=== PATIENT | male | born 1985 | race Caucasian/White ===

== ENCOUNTER 2024-12-07 06:49 | Inpatient (IN) | payer BC, SELFPAY ==
[2024-12-07] VITALS (11 sets, daily range): BP systolic 112–144; BP diastolic 67–84; BMI 25.3; BMI 24.2
[2024-12-07 02:00] LABS: % Basophils 0.3 % (0-2); % Eosinophils 0.9 % (0-6); % Immature Granulocytes 0.3 % (0-0.5); % Lymphocytes 15.7 % (20.5-51.1); % Monocytes 8.2 % (1.7-9.3); % Neutrophils 74.6 % (42.2-75.2); Absolute Eosinophils 0.1 10^3/uL (0-0.7); Absolute Lymphocytes 1.8 10^3/uL (1.2-3.4); Absolute Monocytes 0.9 10^3/uL (0.1-0.6); Absolute Neutrophils 8.4 10^3/uL (1.4-6.5); Hematocrit 44.3 % (39.0-52.0); Hemoglobin 15.4 g/dL (13.0-18.0); Mean Corp Hgb Conc. 34.8 g/dL (33.0-37.0); Mean Corpuscular Volume 86.4 fL (80.0-94.0); Mean Platelet Volume 9.5 fL (7.4-10.4); Nucleated Red Blood Cells % 0 % (-); Platelet Count 225 10^3/uL (130-400); Red Blood Cell Count 5.13 10^6/uL (4.70-6.10); White Blood Cell Count 11.3 10^3/uL (4.8-10.8)
[2024-12-07 02:20] LABS: ALT (SGPT) 27 U/L (0-50); AST (SGOT) 25 U/L (17-59); Albumin 4.3 g/dl (3.5-5.0); Alkaline Phosphatase 51 U/L (38-126); Blood Urea Nitrogen 16 mg/dl (9-20); Calcium 9.6 mg/dl (8.4-10.2); Carbon Dioxide 31 mmol/L (22-30); Chloride 103 mmol/L (98-107); Glucose 104 mg/dl (70-99); Lipase 1069 U/L (23-300); Potassium 4.2 mmol/L (3.5-5.1); Sodium 140 mmol/L (135-145); Total Bilirubin 0.7 mg/dl (0.2-1.3); Total Protein 6.8 g/dl (6.3-8.2); eGFR > 60.00
--- NOTE | 2024-12-07 04:04 | ED.GENMED ---
History of Present Illness
General
Chief Complaint: Abdominal Pain
Source: patient
Exam Limitations: none
Time Seen by Provider: 12/07/24 03:54
Nursing documentation reviewed up to this point in time: agreed with
History of Present Illness
History of Present Illness:
This is a 39-year-old gentleman with no significant past medical history presents with 2-day history of upper abdominal pain, constant and progressive over the past 2 days. Initially began 3 days ago with mild abdominal discomfort, mild queasiness
but then developed upper abdominal discomfort on Sunday, 2 days ago that was initially briefly temporized with Pepto-Bismol. Pain has progressively worsened, now no relief with Pepto-Bismol, no change in pain with meals but admits to moderate
nausea without vomiting and decreased appetite. He denies back pain or chest pain. No fever no chills. No diarrhea or constipation. No history of similar episodes of pain.
He denies NSAID use, denies significant alcohol use perhaps 1 drink per week.
He takes no medicines on a daily basis.
Past History
Past History
ED Past Medical History: None
ED Past Surgical History: None
Social History
Tobacco: Non-smoker
Alcohol: Occasional
Drug: None
Personal:
Living: with family
Employment: Employed
Family History
Family History: Other (Noncontributory)
Phy Exam
Physical Exam
Physical Exam:
GENERAL: 39-year-old gentleman appears his stated age, awake and alert, appears mildly uncomfortable. Easily communicative.
EYE: anicteric
NECK: Supple, nontender, no meningismus, no significant adenopathy.
ENT: oral mucosa is moist. No rhinorrhea.
CARDIAC: Regular rate and rhythm. no murmur.
LUNGS: Clear breath sounds bilaterally, no acute respiratory distress, no wheezes/rales/rhonchi
ABDOMEN: Mildly distended, mildly firm with moderate tenderness generalized to the upper abdomen, significant TTP LUQ and mild tend left mid abdomen with mild local guarding LUQ, no rebound tenderness. no cvat. normoactive BS.
NEUROLOGICAL: Alert and oriented x3, no focal neuro deficits. Gait is steady.
SKIN: Warm and dry, normal color, skin intact. No rash.
MUSCULOSKELETAL: No C/C/E. peripheral pulses are full and equal b/l. No palpable tenderness.
PSYCH: Normal and appropriate interaction.
Course
Orders/Labs/Results
Orders:
Orders
12/07/24 01:30
Electrocardiogram (*1) Urgent
Reason for Study: Abdominal Pain
EKG- Treatment ONCE
12/07/24 01:41
Complete Blood Count/With Diff Urgent
Comprehensive Metabolic Panel Urgent
Lipase Urgent
12/07/24 04:02
CT Abd/pelvis W Iv Cont Urgent
Comment:
Reason For Exam: gen upper abd pain x 2 d, elevated lipase
12/07/24 04:03
0.9% Sodium Chloride 1000 ml [Nss] 1,000 ml IV BOLUS
HYDROmorphone [Dilaudid] 0.5 mg IV NOW STA
Ondansetron Injectable [Zofran] 4 mg IV NOW STA
Pantoprazole [Protonix IV] 40 mg IV NOW STA
Abnormal Lab Results
12/07/24
01:41
WBC 11.3 H 10^3/uL
(4.8-10.8)
Absolute Neuts (auto) 8.4 H 10^3/uL
(1.4-6.5)
Absolute Monos (auto) 0.9 H 10^3/uL
(0.1-0.6)
Lymphocytes % 15.7 L %
(20.5-51.1)
Carbon Dioxide 31 H mmol/L
(22-30)
Glucose 104 H mg/dl
(70-99)
Lipase 1069 H* U/L
(23-300)
12/07/24 01:41
12/07/24 01:41
Vital Signs
Initial and Last Documented VS:
Initial Vital Signs
Temp Pulse Resp BP Pulse Ox
99 F 98 20 144/84 98
12/07/24 01:27 12/07/24 01:27 12/07/24 01:27 12/07/24 01:27 12/07/24 01:27
Last Documented Vital Signs
Temp Pulse Resp BP Pulse Ox
99 F 98 20 121/83 98
12/07/24 01:27 12/07/24 01:27 12/07/24 01:27 12/07/24 05:19 12/07/24 05:19
MDM/Problems Addressed
Differential Diagnosis Includes:
Generalized abdominal pain, progressive over the past 2 days, initially temporized with Pepto-Bismol.
Concern for acute gastritis, peptic ulcer disease, pancreatitis, cholecystitis, diverticulitis.
Labs remarkable for mildly elevated white blood cell count, normal LFTs but lipase elevated at 1069.
Will initiate IV fluids, pain medication, antiemetic, PPI.
Will check CT abdomen pelvis with IV contrast.
*Radiology
Radiology exam reviewed: radiology read reviewed
*Pulse Oximetry
Patient hypoxic: no
*EKG
Interpreted by ED Provider?: Yes
Interpretation: normal
Comparison EKG: no comparison EKG present
Rate: normal
Rhythm: sinus
[place]: normal axis
Interval: normal interval
QRS Pattern: normal QRS
Ischemia: no ischemia
*Critical Care Note
Total Time (30-74mins, 75-104mins- exclusive of procedures): Not Applicable
Update Note
Update Note:
05:25
CAT scan shows acute diverticulitis of descending colon.
Will initiate IV antibiotics, continue IV fluids and pain medications and admit to hospitalist service.
ED Attending Note
-
Portions of this chart may have been created with voice recognition software.� Occasional wrong word or��sound alike� substitutions may have occurred due to the inherent limitations of voice recognition software.
Discharge Plan
Departure
Patient Disposition: Admit
Date of Disposition: 12/07/24
Time of Disposition: :
Admit to: Med/Surg
Admit to doctor: Amairani
Presentation/result/management discussed w/ accepting MD/DO: Hospitalist
Discharge Problem:
Acute diverticulitis of descending colon, Acute pancreatitis
Prescriptions:
No Action
No Current Medications
0
Interventions
Interventions:
*Risk Screen - Suicide Last Done: 12/07/24 01:27
*General Assessment Last Done: 12/07/24 01:27
*Neglect/Abuse Screening Last Done: 12/07/24 01:27
UR-Mbrqhe-Gbshfccnuw Assessment Last Done: 12/07/24 04:24
Discharge Date and Time
Print Language: [place]
[2024-12-07] MEDS: ZOFRAN 4 MG IV (04:16)
[2024-12-07] MEDS: NSS 1000 IV (04:16)
[2024-12-07] MEDS: DILAUDID 0.5 MG IV (04:16)
[2024-12-07] MEDS: PROTONIX IV 40 MG IV (04:16)
[2024-12-07] MEDS: ZOSYN 50 IV (05:46)
--- NOTE | 2024-12-07 06:27 | HPS.HSE ---
Family Physician
-
Family Physician: Alexis Carbajal
Chief Complaint
-
Abdominal pain
History of Present Illness
This is a 39-year-old with no known significant past medical history presenting to the emergency department with abdominal pain.
Patient reports that symptoms began about 3 to 4 days ago. He reports pain that started initially below the sternum by the close on the left as well as all on the right. It was associated with nausea but no vomiting. She denies having any
diarrhea. Denies having any dysuria or any other urinary symptoms.
Patient was able to tolerate the pain initially however it continued for several days and today he had pain that was radiating all the way to the back with total body aches. He had some shakes and rigors but denies having fevers at home.
Patient reports family history of diverticulitis, denies any family history of gallstone disease. He denies personal history of gallstones. He reports occasional alcohol use but nothing significant. He denies any medications. He does use
supplements for exercise including creatinine and protein shakes. He denies any recent trauma.
In the emergency department he was afebrile, blood pressure was 120/80 with a pulse of 98 and was satting 98% on room air.
White count was 11.3 mg platelets were normal. Electrolytes BUN/creatinine were normal. LFTs were completely normal. Total bilirubin was normal. Lipase was elevated at over 1000.
CT of the abdomen pelvis shows diverticulitis involving the descending colon, moderate wall thickening no evidence of abscess formation or free air.
Medical History
Past Medical History
Past Medical History: Reports None
Past Surgical History: Reports None
Social History
Tobacco: Non-smoker
Alcohol: Occasional
Drug: None
Employment: Employed
Family History
Family History: Not pertinent
Allergies / Home Medications
Allergies reflects when Allergies were last updated in [facility].
Home Medications with original date entered in [facility]
Allergy/Medication List:
Allergies
Allergy/AdvReac Type Severity Reaction Status Date / Time
No Known Allergies Allergy Unverified 12/07/24 01:30
Home Medications
No Meds [No Current Medications] 12/07/24
Review of Systems
-
History Source: Patient
Constitutional: Reports No Symptoms
EENT: Reports No Symptoms
Respiratory: Reports No Symptoms
Cardiac: Reports No Symptoms
Abdomen/GI: Reports Abdominal Pain
: Reports No Symptoms
Musculoskeletal: Reports No Symptoms
Skin: Reports No Symptoms
Neurological: Reports No Symptoms
Endocrine: Reports No Symptoms
Hematologic/Lymphatic: Reports No Symptoms
Psych: Reports No Symptoms
Physical Exam
Vital Signs
Vital Signs
Temp Pulse Resp BP Pulse Ox
99 F 98 20 121/67 100
12/07/24 01:27 12/07/24 01:27 12/07/24 01:27 12/07/24 06:00 12/07/24 06:15
Physical Exam
General: Well Developed, Well Nourished and Pain
HEENT: NormoCephalic, Anicteric and Moist mucous membranes
Respiratory: Clear
Cardiac: S1/S2 and Regular Rhythm
Breast: Deferred by me
GI: Soft, Non Tender, Non Distended and Normal Bowel Sounds
Genito-urinary: Deferred by me
Musculoskeletal: No Clubbing, No Cyanosis and No Edema
Skin: Warm
Neuro: AO x 3
Psych: Calm
Laboratory Results
-
12/07/24 01:41
12/07/24 01:41
Laboratory Results
Total Bilirubin 0.7 mg/dl (0.2-1.3) 12/07/24 01:41
AST 25 U/L (17-59) 12/07/24 01:41
ALT 27 U/L (0-50) 12/07/24 01:41
Alkaline Phosphatase 51 U/L (38-126) 12/07/24 01:41
Lipase 1069 U/L (23-300) H* 12/07/24 01:41
Data Reviewed
-
CT Scan: Report Reviewed by me
Lab Data: Labs Reviewed by me
Old Records: Reviewed
Impression/Plan
-
IMPRESSION:
39-year-old coming with abdominal pain for about 3 days and found to have diverticulitis affecting the descending colon without abscess or perforation. She is also found to have elevated lipase. Imaging shows no acute abnormalities around the
within the pancreas. There were no gallstones noted. There was no biliary ductal dilation. LFTs were normal. No history of IV or use. No medications and no ingestions. No family history of pancreatitis and no family history of connective
tissue disorders.
PLAN:
1. Acute diverticulitis - Non-complicated. Patient w/o risk of resistant infection and minimal risk of failure to improve.
- admit to med/surg
- IV zosyn started, will continue with ceftriaxone/flagyl
- bowel rest
- pain control, antiemetics and IV fluids
2. Pancreatitis - Unexplained pancreatitis. Denies ETOH. No gallstones. No trauma or procedures and no offending medications.
- check triglycerides
- as above, bowel rest, fluids and pain control
DVT PPX - lovenox sq
Code status - Full Code
--- NOTE | 2024-12-07 11:31 | W.PN.HOSP.TC ---
Today's Communication/Plan
-
Clears
IVF
GI eval
Labs
Assessment / Plan
Assessment / Plan
39-year-old male presented with abdominal pain. Patient states that it started on . He went out to dinner on Sunday had 1 beer and he did not not sit with him bowel. Sunday his pain got really worse and he could not sleep overnight he
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 No fevers. No diarrhea. No history of diverticulitis in the past ,he does not use alcohol consistently, only occasional. Sister and mother both have history of diverticulitis. No history of colon
cancer in the family.
CVS: S1-S2 normal
Chest: CTA B/L
Abdomen: Soft, mild tenderness left LQ
Extremities: No edema
# Abdominal pain
Likely secondary to acute diverticulitis
Continue ceftriaxone and Flagyl
Clear liquid diet as pain is better
IV fluids and antiemetics as needed
Elevated lipase-no evidence of inflammation of the pancreas on the CT.
Await GI input
Check triglyceride level
# DVT prophylaxis-Lovenox
# Full code
Anticipated Discharge: 24 - 48 hours
Subjective/Interval History
-
Date of Service: December 07, 2024
Objective Data
-
Labs:
Laboratory Results
12/07/24 12/07/24
01:41 14:00
WBC 11.3 H
Hgb 15.4
Hct 44.3
Plt Count 225
Sodium 140 Pending
Potassium 4.2 Pending
Chloride 103 Pending
Carbon Dioxide 31 H Pending
BUN 16 Pending
Creatinine 0.9 Pending
Glucose 104 H Pending
Calcium 9.6 Pending
Total Bilirubin 0.7 Pending
AST 25 Pending
ALT 27 Pending
Alkaline Phosphatase 51 Pending
Vital Signs:
Vital Signs
Temp Pulse Resp BP Pulse Ox
99 F 98 20 124/72 100
12/07/24 01:27 12/07/24 01:27 12/07/24 01:27 12/07/24 10:51 12/07/24 08:29
--- NOTE | 2024-12-07 11:50 | CON.GI ---
Consultation
-
Date/Time Consultation Performed: 12/07/24
Performing Provider: Sg Caicedo MD
Reason for Consultation: abdominal pain
Medical History
Chief Complaint / HPI
Chief Complaint: abdominal pain
History of Present Illness:
The patient is a 39-year-old male with past medical history as noted with abdominal pain. The pain started a few days ago, and he describes lower abdominal pain, below the bellybutton, on the left and right side. He had some more systemic symptoms
such as sweats though did not have any vomiting. He denies any upper abdominal pain. He denies any change in bowel habits, melena hematochezia. He is never had pain like this before. He has rare alcohol though not significant. Otherwise is very
healthy with no significant medical issues. He denies any family history of inflammatory bowel disease or cancer, though has multiple relatives with diverticulitis.
Past Medical History
Past Medical History: None
Past Surgical History: None
Social History
Tobacco: Non-Smoker
Alcohol: Occasional
Family History
Family History: Reviewed & Not Pertinent
Allergies / Home Medications
Allergy/AdvReac Type Severity Reaction Status Date / Time
No Known Allergies Allergy Unverified 12/07/24 01:30
�Medication �Instructions �Recorded
No Meds [No Current Medications] 12/07/24
Review of Systems
-
All other systems: A 12 pt ROS was Negative except as stated above in HPI
Vital Signs
Temp Pulse Resp BP Pulse Ox
99 F 98 20 124/72 100
12/07/24 01:27 12/07/24 01:27 12/07/24 01:27 12/07/24 10:51 12/07/24 08:29
Physical Exam
Exam
General: NAD
HEENT: MMM, anicteric, no lymphadenopathy
Heart: Regular, no murmurs
Lungs: CTA bilaterally
Abdomen: normal bowel sounds, soft, mild left lower quadrant tenderness, no rebound or guarding, no masses, bruits or ascites
Extremeties: no edema
Skin: no rashes
Results
WBC 11.3 10^3/uL (4.8-10.8) H 12/07/24 01:41
Hgb 15.4 g/dL (13.0-18.0) 12/07/24 01:41
Hct 44.3 % (39.0-52.0) 12/07/24 01:41
MCV 86.4 fL (80.0-94.0) 12/07/24 01:41
Plt Count 225 10^3/uL (130-400) 12/07/24 01:41
Absolute Neuts (auto) 8.4 10^3/uL (1.4-6.5) H 12/07/24 01:41
Sodium 140 mmol/L (135-145) 12/07/24 01:41
Potassium 4.2 mmol/L (3.5-5.1) 12/07/24 01:41
Chloride 103 mmol/L (98-107) 12/07/24 01:41
Carbon Dioxide 31 mmol/L (22-30) H 12/07/24 01:41
BUN 16 mg/dl (9-20) 12/07/24 01:41
Creatinine 0.9 mg/dL (0.7-1.3) 12/07/24 01:41
Calcium 9.6 mg/dl (8.4-10.2) 12/07/24 01:41
Total Bilirubin 0.7 mg/dl (0.2-1.3) 12/07/24 01:41
AST 25 U/L (17-59) 12/07/24 01:41
ALT 27 U/L (0-50) 12/07/24 01:41
Alkaline Phosphatase 51 U/L (38-126) 12/07/24 01:41
Lipase 1069 U/L (23-300) H* 12/07/24 01:41
Diagnostic Image Results:
CT:
IMPRESSION: CT findings compatible with diverticulitis involving the descending colon. No evidence of abscess or free intraperitoneal air.
Liver length is slightly enlarged with no focal hepatic lesion.
Prior GI Procedures:
EGD:
Colonoscopy:
Assessment / Plan
-
1. Abdominal pain: Clinically does seem more consistent with diverticulitis, especially given left lower quadrant tenderness on exam and CT findings. His lipase was more than 3 times the upper normal limit of normal however, though CT without
significant peripancreatic inflammation and really no symptoms of pancreatitis and clinically think this is much less likely. There was significant colonic thickening noted on CT scan, though again more consistent with diverticulitis and malignancy
seems much less likely. At this point would continue supportive care, antibiotics, advance to full liquid diet. Will repeat labs including lipase in the morning, and if improving then is okay to DC tomorrow to complete a course of antibiotics,
will plan colonoscopy in 6 weeks.
-
-
Thank you for consultation and allowing me to participate in the patient's care. Please call the rail transportation operator GI physician during the after hours with any questions or concerns.
[2024-12-07] MEDS: FLAGYL 500 MG 100 IV ×2 (12:17→19:53)
[2024-12-07] MEDS: STERILE WATER FOR INJECTION 20 ML IV (12:17)
[2024-12-07] MEDS: ROCEPHIN 2000 MG IV (12:17)
[2024-12-07] MEDS: D5/0.9% SODIUM CHLORIDE 1000 IV ×2 (12:17→21:56)
[2024-12-07 14:33] LABS: ALT (SGPT) 26 U/L (0-50); AST (SGOT) 20 U/L (17-59); Albumin 4.2 g/dl (3.5-5.0); Alkaline Phosphatase 52 U/L (38-126); Blood Urea Nitrogen 10 mg/dl (9-20); Calcium 9.2 mg/dl (8.4-10.2); Carbon Dioxide 31 mmol/L (22-30); Chloride 102 mmol/L (98-107); Direct Bilirubin 0.2 mg/dl (0.0-0.4); Estimated Creatinine Clearance > 125 ml/min; Glucose 127 mg/dl (70-99); Lipase 111 U/L (23-300); Potassium 4.2 mmol/L (3.5-5.1); Sodium 139 mmol/L (135-145); Total Bilirubin 0.8 mg/dl (0.2-1.3); Total Protein 6.8 g/dl (6.3-8.2); Triglycerides 48 mg/dl (10-149); eGFR > 60.00
[2024-12-07] MEDS: LOVENOX 40 MG SC (18:07)
[2024-12-08] MEDS: FLAGYL 500 MG 100 IV ×2 (04:01→12:37)
[2024-12-08] MEDS: D5/0.9% SODIUM CHLORIDE 1000 IV (06:23)
--- NOTE | 2024-12-08 06:26 | W.PN.GI.CBS2 ---
Today's Communication / Plan
-
Assessment and plan for details.
Assessment / Plan
-
1. Abdominal pain: Clinically does seem more consistent with diverticulitis, especially given left lower quadrant tenderness on exam and CT findings, overall improved, uncomplicated. At this point will await morning labs, will advance diet to low
residue and if tolerates is okay to DC from GI standpoint to complete 10 days of antibiotics. Will arrange for outpatient colonoscopy in 6 weeks.
2. Elevated lipase: Without symptoms of pancreatitis, repeat normal, no CT findings of pancreatitis. Will await morning labs though hold on further workup if remains normal.
Subjective
Subjective
Date of Service: December 08, 2024
Patient feeling much better overall, less abdominal, still some bloating though tolerating full liquids without difficulty. No vomiting, fever or chills.
Objective
Data Reviewed
Laboratory Data:
Laboratory Results
Total Bilirubin 0.8 mg/dl (0.2-1.3) 12/07/24 14:08
AST 20 U/L (17-59) 12/07/24 14:08
ALT 26 U/L (0-50) 12/07/24 14:08
Alkaline Phosphatase 52 U/L (38-126) 12/07/24 14:08
Lipase 111 U/L (23-300) 12/07/24 14:08
Vital Signs and I&O:
Vital Signs
Temp Pulse Resp BP Pulse Ox
97.8 F 80 18 112/69 100
12/07/24 23:00 12/07/24 23:00 12/07/24 23:00 12/07/24 23:00 12/07/24 23:00
I&O
12/06/24 12/07/24 12/08/24
06:59 06:59 06:59
Intake Total 1320 / 1320
Balance 1320 / 1320
Physical Exam
Physical Exam
General: NAD
Abdomen: normal bowel sounds, soft, minimal left lower quadrant tenderness, no masses or bruits, no ascites
[2024-12-08 07:00] VITALS: BP 118/83
[2024-12-08 07:56] LABS: Hematocrit 39.5 % (39.0-52.0); Hemoglobin 13.7 g/dL (13.0-18.0); Mean Corp Hgb Conc. 34.7 g/dL (33.0-37.0); Mean Corpuscular Volume 86.6 fL (80.0-94.0); Mean Platelet Volume 9.4 fL (7.4-10.4); Platelet Count 169 10^3/uL (130-400); Red Blood Cell Count 4.56 10^6/uL (4.70-6.10); Red Cell Dist. Width 12.2 % (11.5-14.5)
[2024-12-08 08:09] LABS: Blood Urea Nitrogen 7 mg/dl (9-20); Calcium 8.8 mg/dl (8.4-10.2); Carbon Dioxide 30 mmol/L (22-30); Chloride 107 mmol/L (98-107); Estimated Creatinine Clearance > 125 ml/min; Glucose 110 mg/dl (70-99); Lipase 108 U/L (23-300); Potassium 4.6 mmol/L (3.5-5.1); Sodium 140 mmol/L (135-145); eGFR > 60.00
--- NOTE | 2024-12-08 12:18 | CM ---
Met with patient to obtain information for assessment. Patient stated that he lives with his in a two story home with three steps to enter. He is independent with his ADLs, personal care, dressing and bathing. 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 He drives and can get to his appointments and do his own shopping. He has no DME. He has not had VN or been to a SNF.
Patient has a prescription plan and uses, [facility] for all of his medications.
Patient's PCP is, Alexis Corea.
Plan: Case management will continue to follow and assist with discharge planning. Home when cleared.
[2024-12-08] MEDS: ROCEPHIN 2000 MG IV (12:37)
[2024-12-08] MEDS: STERILE WATER FOR INJECTION 20 ML IV (12:37)
--- NOTE | 2024-12-08 13:18 | W.PN.HOSP.TC ---
Today's Communication/Plan
-
Discharge
Assessment / Plan
Assessment / Plan
Gen-AAOx3, NAD
HEENT-NC, AT, anicteric, clear oral mm
Neck-supple
CV-reg, no M, +S1/S2
Lungs-clear B/L
Abd-soft, NT, ND
Ext-no edema
Musculoskeletal-no cyanosis, clubbing
Skin-warm and dry
Neuro-grossly non-focal
Psych-calm, cooperative
Acute diverticulitis -involving descending colon. No evidence of abscess or free air on CT. Clinically improving. Continue antibiotics on discharge. Tolerating diet. Follow-up with PCP and GI. Will need colonoscopy in 6 weeks. Described in
detail with patient. Rule out underlying malignancy.
# DVT prophylaxis-Lovenox
# Full code
Dispo -medically stable for discharge.
Anticipated Discharge: Today
Subjective/Interval History
-
Date of Service: December 08, 2024
Patient seen and examined. Overall feeling better, pain is down to a 2 out of 10. Tolerating diet. Eager to go home today.
Objective Data
-
Labs:
Laboratory Results
12/08/24
06:40
WBC 4.0 L
Hgb 13.7
Hct 39.5
Plt Count 169 D
Sodium 140
Potassium 4.6
Chloride 107
Carbon Dioxide 30
BUN 7 L
Creatinine 0.7
Glucose 110 H
Calcium 8.8
Vital Signs:
Vital Signs
Temp Pulse Resp BP Pulse Ox
97.8 F 86 16 118/83 98
12/08/24 07:00 12/08/24 07:00 12/08/24 07:00 12/08/24 07:00 12/08/24 13:04
I&O
12/07/24 12/08/24 12/09/24
06:59 06:59 06:59
Intake Total 3500 / 3500
Balance 3500 / 3500
Review of Systems
-
History Source: Patient
All other systems: Reviewed and negative
--- NOTE | 2024-12-08 13:23 | W.DS.TRANS ---
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
-
Discharge Instructions:
Discharge Diagnosis/Procedures Acute diverticulitis
Diet Low Residue
Additional Diets Low residue diet for 5 days then switch to high-
fiber diet
Activity As tolerated
Driving Restrictions As prior to admission
Bathing Restrictions None
Instructions:
Stand-Alone Forms:
Changes to Home Medications: No
Discharge Medications:
DC Medications w/original date entered in [facility]
amoxicillin 875 mg-potassium clavulanate 125 mg tablet 1 tab PO BID #18 tabs 12/08/24
Home Medication Changes
Pending Results: No
[2024-12-08 14:00] VITALS: BP 116/63
== END 2024-12-08 14:20 | disposition home or self-care (01) | DRG 392 ==
LOC: 4 EAST ACU 06:49
PROVIDERS: ADMITTING PHYSICIAN Internal Medicine; ATTENDING PHYSICIAN Hospitalist; CONSULT PHYSICIAN Internal Medicine Gastroenterology; EMERGENCY PHYSICIAN Emergency Medicine; FAMILY PHYSICIAN Family Medicine
DX: K57.32 Diverticulitis of large intestine without perforation or abscess without bleeding (principal)
CPT/HCPCS: 74177; 80048; 80053; 80076; 83690; 84478; 85025; 85027; 93005; 96361; 96374; 96375; 99285; Q9967

== ENCOUNTER 2025-01-23 06:17 | Day surgery (SDC) | payer BC, SELFPAY | END 2025-01-23 10:37 | disposition home or self-care (01) | LOC: GI 06:17 | PROVIDERS: ATTENDING PHYSICIAN Internal Medicine Gastroenterology; FAMILY PHYSICIAN Family Medicine | DX: K57.32 Diverticulitis of large intestine without perforation or abscess without bleeding (principal); K57.30 Diverticulosis of large intestine without perforation or abscess without bleeding; K64.8 Other hemorrhoids | CPT/HCPCS: 45378 ==